=== PATIENT | female | born 1955 | race Caucasian/White ===

== ENCOUNTER 2017-05-18 09:54 | Day surgery (SDC) | payer OTHER ==
[~2017-05-18] VITALS: Ht 167.6 cm; Wt 88.5 kg
[~2017-05-18 09:54] MED LIST: ALEVE220 MG PO; CALCIUM 600 +1 EAC3 PO; LO-DOSE ASPIRIN81 M1 PO; MULTIPLE VITAM1 EAC1 PO
[2017-05-18 10:14] VITALS: BP 112/67
[2017-05-18 18:14] VITALS: BP 124/72
[2017-05-18 19:00] VITALS: BP 119/67
== END 2017-05-18 19:25 | disposition home or self-care (01) ==
LOC: SDC 09:54
DX: M20.11 Hallux valgus (acquired), right foot (principal); M21.41 Flat foot [pes planus] (acquired), right foot; M76.821 Posterior tibial tendinitis, right leg; M21.6X1 Other acquired deformities of right foot; M79.671 Pain in right foot; M77.9 Enthesopathy, unspecified; E78.4 Other hyperlipidemia; E04.1 Nontoxic single thyroid nodule
CPT/HCPCS: 73630; 76000; 88304; 88311; C1713; J0131; J0690; J1100; J1170; J1885; J2250; J2405; J2765; J2795; S0020